=== PATIENT | male | born 1975 | race Caucasian/White ===

== ENCOUNTER 2019-11-18 07:48 | Emergency (ER) | payer BC ==
[2019-11-18 07:54] VITALS: Wt 98.2 kg
[2019-11-18 08:22] LABS: BASOPHILS 0.7 % (0-2); EOSINOPHILS 0.9 % (0-7); HEMATOCRIT 46.1 % (42.0-54.0); HEMOGLOBIN 16.2 g/dL (13.5-17.5); IMMATURE GRANULOCYTES 0.1 % (0-5); LYMPHOCYTES 33.5 % (15-50); MCHC 35.1 g/dL (31.0-37.0); MCV 82.6 fL (80.0-100.0); MEAN PLATELET VOLUME 8.2 fL (7.4-10.4); MONOCYTES 8.1 % (2-11); NEUTROPHILS 56.7 % (40-80); PLATELET COUNT 244 10x3/uL (130-400); RBC 5.58 10x6/uL (4.20-6.10); RDW 12.6 % (11.5-14.5)
[2019-11-18 08:40] LABS: ANION GAP 15.8 mmol/L (8-16); CALCIUM 9.5 mg/dL (8.5-10.1); CARBON DIOXIDE 24.1 mmol/L (21.0-32.0); CREATININE - SERUM 1.2 mg/dL (0.6-1.3); POTASSIUM - SERUM 3.9 mmol/L (3.5-5.1)
[2019-11-18] MEDS ORDERED: HYDROCODON-ACE1 EA10 PO (08:43)
[2019-11-18] MEDS ORDERED: AUGMENTIN 875-11 TAB PO (08:43)
[2019-11-18 08:49] LABS: ALBUMIN 4.5 g/dL (3.4-5.0); BILIRUBIN - TOTAL 0.89 mg/dL (0.2-1.3); PROTEIN - SERUM 7.6 g/dL (6.4-8.2)
[2019-11-18 09:03] VITALS: BP 112/59
[2019-11-19] MEDS ORDERED: ALDACTONE25 MG PO (13:06)
[2019-11-19] MEDS ORDERED: LOTREL 5/10 MG1 CAP PO (13:06)
[2019-11-19 13:16] VITALS: Wt 98.2 kg
[2019-11-19] MEDS ORDERED: HYDROCODON-ACE1 EA10 PO (14:52)
== END 2019-11-18 09:04 | disposition home or self-care (01) ==
LOC: D.ER 07:48
PROVIDERS: Family Medicine
DX: S68.127A Partial traumatic metacarpophalangeal amputation of left little finger, initial encounter (principal); I10 Essential (primary) hypertension; W23.0XXA Caught, crushed, jammed, or pinched between moving objects, initial encounter; Y93.9 Activity, unspecified; Y92.9 Unspecified place or not applicable

== ENCOUNTER 2019-11-19 11:23 | Day surgery (SDC) | payer BC ==
[~2019-11-19] VITALS: Ht 177.8 cm; Wt 98.0 kg
--- NOTE | ~2019-11-19 | OP ---
PATIENT NAME: PATIENCE SOMERS MEDICAL RECORD: [id number] :73 LOCATION:D.OPS ADMISSION DATE: SURGEON: EVELYN VIRK MD DATE OF OPERATION: 11/19/2019 PREOPERATIVE DIAGNOSIS: Partial amputation of the left fifth finger fingertip. POSTOPERATIVE DIAGNOSIS: Partial amputation of the left fifth finger fingertip. PROCEDURE: 1. Revision of amputation with debridement. 2. Application of full thickness skin graft for Salvation of the fingertip. SURGEON: Evelyn Virk MD ANESTHESIA: General. INTRAOPERATIVE COMPLICATIONS: None. SUMMARY OF PATHOLOGIC FINDINGS: The patient has sustained a very smooth fingertip amputation losing the entire germinal matrix, however, the tuft of the finger bed of the nail was still viable and was adequate for coverage of the residual bone in. The flexor tendon was still intact. The decision was made then to not formalize the amputation at the DIP joint, but salvage the distal phalanx using the full thickness skin graft. OPERATIVE SUMMARY IN DETAIL: After obtaining the appropriate preoperative orthopedic surgery consent as well as anesthetic consultation, evaluation and clearance, the patient was brought to the operating room and placed on the supine position. After general laryngeal mask airway was administered, tourniquet was placed in the proximal aspect of the left upper extremity and it was not used during this case. Left upper extremity was then prepped and draped in routine sterile fashion. Attention was first turned to the open wound which was copiously irrigated and found to be exquisitely clean and excellent residual tuft as noted. The entire germinal matrix had been avulsed. The tuft was reapproximated gently with 3-0 Vicryl. At this point, an elliptical full thickness skin graft was taken just proximal to the wrist crease. This in its entirety was sewn across the distal phalangeal tuft using 4-0 Prolene in interrupted fashion. Having completed this, the skin graft site was closed with 4-0 Prolene in mattress style fashion that the finger was blocked as was the area about the graft site. Sterile dressings were applied. The patient was awakened and taken to recovery in stable condition. All final needle and sponge counts were correct. TRANSINT:[id number] Voice Confirmation ID: [id number] DOCUMENT ID: [id number] EVELYN VIRK MD CC: [id number] DICTATION DATE: 11/19/19 1455 VEHICLE MAINTENANCE TECHNICIAN: 11/19/19 2205 DEP SDC 11/19/19 [facility] [address] [facility], [facility]
[~2019-11-19 11:23] MED LIST: AUGMENTIN 875-11 TAB PO; HYDROCODON-ACE1 EA10 PO
[2019-11-19 12:09] LABS: ANION GAP 10.8 mmol/L (8-16); CALCIUM 9.4 mg/dL (8.5-10.1); CARBON DIOXIDE 29.9 mmol/L (21.0-32.0); CREATININE - SERUM 1.2 mg/dL (0.6-1.3)
[2019-11-19 12:11] LABS: POTASSIUM - SERUM 4.7 mmol/L (3.5-5.1)
[2019-11-19 12:20] LABS: BASOPHILS 0.6 % (0-2); EOSINOPHILS 1.2 % (0-7); HEMATOCRIT 47.2 % (42.0-54.0); HEMOGLOBIN 16.3 g/dL (13.5-17.5); IMMATURE GRANULOCYTES 0.1 % (0-5); LYMPHOCYTES 31.5 % (15-50); MCH 28.8 pg (26.0-34.0); MCHC 34.5 g/dL (31.0-37.0); MCV 83.5 fL (80.0-100.0); MEAN PLATELET VOLUME 8.3 fL (7.4-10.4); MONOCYTES 7.1 % (2-11); NEUTROPHILS 59.5 % (40-80); PLATELET COUNT 283 10x3/uL (130-400); RBC 5.65 10x6/uL (4.20-6.10); RDW 12.6 % (11.5-14.5); WBC 8.1 10x3/uL (4.8-10.8)
[2019-11-19] MEDS ORDERED: ALDACTONE25 MG PO (13:06)
[2019-11-19] MEDS ORDERED: LOTREL 5/10 MG1 CAP PO (13:06)
[2019-11-19 13:16] VITALS: Ht 177.8 cm; Wt 98.0 kg
[2019-11-19] MEDS ORDERED: HYDROCODON-ACE1 EA10 PO (14:52)
== END 2019-11-19 16:30 | disposition home or self-care (01) ==
LOC: D.OPS 11:23
PROVIDERS: Anesthesiology; ATTEND Orthopaedic Surgery
DX: S68.627A Partial traumatic transphalangeal amputation of left little finger, initial encounter (principal); X58.XXXA Exposure to other specified factors, initial encounter

== ENCOUNTER → 2019-12-24 18:04 | Outpatient (CLI) | payer BC ==
[2019-11-19 13:16] VITALS: BMI 31.0
[~2019-12-24 18:04] MED LIST changes: +ALDACTONE25 MG PO; +LOTREL 5/10 MG1 CAP PO
== END | disposition home or self-care (01) ==
LOC: D.LABREF 18:04
PROVIDERS: ATTEND Clinical Nurse Specialist Family Health
DX: Z89.022 Acquired absence of left finger(s) (principal)